=== PATIENT | male | born 1940 | race Caucasian/White ===

== ENCOUNTER 2024-10-15 14:26 | Outpatient (OUT) | payer MEDICARE, SELFPAY ==
--- NOTE | 2024-10-15 14:33 | XR_ITS ---
[address] [address] Patient Name: JOHNSON CAMP MRN: [id number] date: 1940 Sex: M Assigned Patient Location: LAB Current Patient Location: LAB Accession/Order Number: [id number] Exam Date: 10/15/2024 14:35 Report Date: 10/15/2024 15:02 At the request of: HUA TUCKER Procedure: XR chest 2V Chest 2 views CLINICAL HISTORY: Chronic Obstructive Pulmonary Disease COMPARISON: CT chest 11/08/2019 FINDINGS: Heart normal in size. No lung consolidation pneumothorax pleural effusion or free air. Mild lung scarring. XR/XR chest 2V IMPRESSION: MILD LUNG SCARRING. NO CONSOLIDATION TO SUGGEST PNEUMONIA. Impression dictated by: Jin Torres Jr., D.O. 10/15/2024 3:02 PM Dictation Location: [place] [address] Electronically authenticated by: [id number] Y Date: 10/15/2024 15:02
== END 2024-10-15 14:27 | disposition home or self-care (01) ==
PROVIDERS: PCP Internal Medicine; Visit Provider Physician Assistant
DX: J44.1 Chronic obstructive pulmonary disease with (acute) exacerbation (principal)
CPT/HCPCS: 71046